=== PATIENT | male | born 1955 | race Caucasian/White ===

== ENCOUNTER → 2021-11-15 | Outpatient (CLI) | payer MEDICARE, OTHER ==
[~2021-11-15] MED LIST: BACITRACIN TOP; BACTRIM DS TAB1 EACH PO; BUMEX 1MG TABLET1 MG PO; CIPRO500 MG PO; CLARITIN-D 241 EACH PO; CLONIDINE1 EACH TD; COZAAR 50MG TAB50 MG PO; COZAAR50 MG PO; DULERA 100 MCG8.8 GM INH; ECOTRIN81 MG PO; GABAPENTIN600 MG PO; GLUCOPHAGE500 MG PO; IPRAT-ALBUT 0.5-3 ML INH; KENALOG CREAM 015 GM TOP; LASIX40 MG PO; LEVAQUIN750 MG PO; LEVOFLOXACIN500 MG PO; LISINOPRIL10 MG PO; LOPRESSOR100 MG PO; LOVENOX80 MG/0.8 SC; NAPROSYN500 MG PO; NASACORT16.9 ML; PERCOCET 10-321 EACH PO; PRAVACHOL40 MG PO; PREDNISONE20 MG PO; PROVENTIL HFA6.7 GM INH; SALINE WOUND W210 ML MC; SANTYL OINT 3030 GM TP; SILVADENE CREAM20 GM TOP; SULFAMETHOXAZO1 EACH PO; SYNJARDY PO; SYNTHROID175 MCG PO; ULTRAM50 MG PO; VITAMIN D31000 UNI1 PO; ZYVOX 600 MG T600 MG PO
== END ==
LOC: KOH-I 08:57
DX: F17.210 Nicotine dependence, cigarettes, uncomplicated (principal)
CPT/HCPCS: 71271